=== PATIENT | female | born 1985 | race Caucasian/White ===

== ENCOUNTER 2021-12-07 21:09 | Emergency (ER) | payer OTHER ==
[~2021-12-07 21:09] MED LIST: VENTOLIN HFA IN18 GM INH
[2021-12-07 21:32] LABS: BASOPHIL 0.7 % (0-2); EOSINOPHIL 3.5 % (0-5); HCT 40.8 % (37.0-47.0); HGB 13.7 g/dl (12.5-16.0); MCH 31.5 pg (25.0-31.0); MCHC 33.6 g/dL (32.0-36.0); MCV 93.8 fL (78.0-100.0); MONOCYTE 10.4 % (0-12); MPV 10.6 fL (6.0-9.5); NRBC 0; PLT 262 K/uL (150-400); RBC 4.35 M/uL (4.20-5.40); RDW 13.4 % (11.5-14.0); WBC 5.5 K/uL (4.0-10.5)
[2021-12-07 21:51] LABS: ALBUMIN 3.7 g/dL (3.4-5.0); BILIRUBIN - TOTAL 0.2 mg/dL (0.2-1.0); BUN/CREAT RATIO (CALC) 8.1 RATIO; CREATININE 0.86 mg/dL (0.51-0.95); GLOBULIN (CALCULATION) 3.7 g/dL; POTASSIUM 4.2 mmol/L (3.5-5.1); TOTAL PROTEIN 7.4 g/dL (6.4-8.2)
[2021-12-07 21:56] LABS: LACTIC ACID 0.9 mmol/L (0.4-1.9)
[2021-12-07 22:24] LABS: BILIRUBIN NEGATIVE (NEGATIVE); BLOOD NEGATIVE Ery/uL (NEGATIVE); CLARITY CLEAR (CLEAR); COLOR YELLOW (YELLOW); GLUCOSE (U) NORMAL (NORMAL); LEUKOCYTES NEGATIVE Leu/uL (NEGATIVE); NITRITE NEGATIVE (NEGATIVE); PROTEIN NEGATIVE (NEGATIVE); UROBILINOGEN 0.2 mg/dL (0.2-1.0); pH 7.5 (5.0-9.0)
[2021-12-07 22:32] LABS: CORONAVIRUS 2019 SARS-COV-2 NEGATIVE (NEGATIVE); INFLUENZA A NAA POSITIVE (NEGATIVE)
[2021-12-07] MEDS ORDERED: ONDANSETRON ODT4 MG PO (23:16)
[2021-12-07] MEDS ORDERED: MEDROL 4MG DOSEP4 MG PO (23:16)
== END 2021-12-07 23:35 | disposition home or self-care (01) ==
LOC: FER 21:09
PROVIDERS: Internal Medicine; Nurse Practitioner Family
DX: J10.1 Influenza due to other identified influenza virus with other respiratory manifestations (principal); Z20.822 Contact with and (suspected) exposure to COVID-19
CPT/HCPCS: 36415; 71045; 80053; 81003; 83605; 84145; 85025; 87040; 93005; C9113; J1100; J1885; J2543; J7030; U0002